=== PATIENT | female | born 1980 ===

== ENCOUNTER 2017-12-08 17:38 | Emergency (ER) | payer MEDICAID ==
[2017-12-08 17:38] VITALS: BMI 23.0
[2017-12-08 18:12] VITALS: RESP 18; O2SAT 100
--- NOTE | 2017-12-08 18:19 | ED PDOC ---
HPI: Back Time Seen by Provider: 12/08/17 18:18 Chief Complaint (Nursing): Back Pain Chief Complaint (Provider): low back pain History Per: Patient Additional Complaint(s): 37-year-old female presents to emergency department with lower back pain and flank pain that started 5 days ago. Patient denies any dysuria or hematuria. She denies any fever or chills. Tylenol has helped the pain somewhat. She rates current pain as 7/10. No tylenol taken today for pain. PMD: none Past Medical History Reviewed: Historical Data, Nursing Documentation, Vital Signs Vital Signs: Last Vital Signs Temp 98.4 F 12/08/17 18:10 Pulse 76 12/08/17 18:10 Resp 18 12/08/17 18:10 BP 110/71 12/08/17 18:10 Pulse Ox 100 12/08/17 18:10 - Medical History PMH: Gastritis - Surgical History Surgical History: Endoscopy, (x 1) Other surgeries: ovarian cyst removal - Family History Family History: States: No Known Family Hx - Living Arrangements Living Arrangements: With Family - Social History Current smoker - smoking cessation education provided: No Alcohol: None Drugs: Denies - Home Medications Home Medications: Ambulatory Orders Medication Instructions Recorded Omeprazole 40 mg PO DAILY 02/10/17 Cyclobenzaprine [Cyclobenzaprine 10 mg PO TID PRN #15 tab 12/08/17 HCl] Ibuprofen [Motrin] 600 mg PO Q6 PRN #15 tab 12/08/17 - Allergies Allergies/Adverse Reactions: Allergies Allergy/AdvReac Type Severity Reaction Status Date / Time No Known Allergies Allergy Verified 02/10/17 10:28 Review of Systems ROS Statement: Except As Marked, All Systems Reviewed And Found Negative Constitutional: Negative for: Fever, Chills Respiratory: Negative for: Cough Gastrointestinal: Negative for: Nausea, Vomiting, Abdominal Pain, Diarrhea Genitourinary Female: Negative for: Dysuria, Frequency, Incontinence, Hematuria , Vaginal Discharge, Vaginal Bleeding Musculoskeletal: Positive for: Back Pain Physical Exam - Reviewed Nursing Documentation Reviewed: Yes Vital Signs Reviewed: Yes - Physical Exam Appears: Positive for: Well, Non-toxic, No Acute Distress Skin: Negative for: Rash Eye Exam: Positive for: Normal appearance Cardiovascular/Chest: Positive for: Regular Rate, Rhythm Respiratory: Positive for: Normal Breath Sounds. Negative for: Wheezing, Respiratory Distress Gastrointestinal/Abdominal: Positive for: Soft. Negative for: Tenderness, Distended, Guarding, Rebound Back: Positive for: L CVA Tenderness, R CVA Tenderness, Vertebral Tenderness ( lumbar) Extremity: Positive for: Normal ROM Neurologic/Psych: Positive for: Alert, Oriented - Laboratory Results Result Diagrams: 12/08/17 18:52 12/08/17 18:52 Urine POC: Negative Urine dip results: Positive for: Blood (small). Negative for: Leukocyte Esterase, Nitrate, Ketones, Glucose, Bilirubin, Protein - ECG O2 Sat by Pulse Oximetry: 100 Pulse Ox Interpretation: Normal - Other Rad CT abd and pelvis without contrast X-Ray: Read By Radiologist X-Ray Interpretation: see below Medical Decision Making Medical Decision Makin37 year old with low back pain and flank pain Plan: CBC CMP Urine dip - blood noted CT abd and pelvis without contrast IVF IV toradol PO tylenol CT: FINDINGS: LIMITATIONS: Mild streak/motion artifact. LOWER THORAX: No infiltrate seen in the lung bases. ABDOMEN: LIVER: No acute abnormality of the liver identified. GALLBLADDER AND BILE DUCTS: No CT evidence of acute cholecystitis. No evidence of significant biliary ductal dilatation. PANCREAS: No CT evidence of acute pancreatitis. SPLEEN: No acute abnormality of the spleen identified. ADRENALS: No acute abnormality of the adrenal glands identified. KIDNEYS AND URETERS: No acute abnormality of the kidneys seen. No renal stones, hydronephrosis, or hydroureter seen. STOMACH AND BOWEL: Retained stool noted throughout the colon, with no evidence of a significant large bowel obstruction or fecal impaction. Otherwise, no significant abnormality of the bowel is identified. No evidence of small bowel obstruction. APPENDIX: Appendix is seen, and is within normal limits in appearance. PELVIS: BLADDER: No acute abnormality of the bladder identified. REPRODUCTIVE: Cystic lesions in the adnexa/ovaries bilaterally. The larger lesion, located on the left, measures up to 5.3 cm, and has a CT density of 19 Hounsfield units, slightly higher than expected for simple fluid. Pelvic ultrasound is recommended for further evaluation, given the size of this lesion, not necessarily on an emergent basis. Bulge in the contour of the uterus anteriorly, most likely secondary to a fibroid. ABDOMEN and PELVIS: INTRAPERITONEAL SPACE: No evidence of free intraperitoneal air or fluid. BONES/JOINTS: No acute fractures or other acute bony abnormality noted. SOFT TISSUES: No acute abnormality of the visualized soft tissues is seen. VASCULATURE: No evidence of abdominal aortic aneurysm. No evidence of periaortic hemorrhage. LYMPH NODES: No evidence of diffuse lymphadenopathy. IMPRESSION: - No evidence of significant acute process on this unenhanced exam. There is no evidence of nephrolithiasis or obstructive uropathy. 5.2 cm left ovarian/adnexal cystic lesion. See recommendations above. Patient is aware of all diagnostic testing results. All questions answered. Patient has a technician trainee that she will follow up with. Prescriptions for Motrin and Flexeril given for back pain. Patient verbalizes understanding of the need for close follow-up. Disposition - Clinical Impression Clinical Impression: Back pain, Ovarian cyst, Fibroid - Patient ED Disposition Is Patient to be Admitted: No Counseled Patient/Family Regarding: Studies Performed, Diagnosis, Need For Followup, Rx Given - [facility]position [facility] Disposition: Routine/Home Disposition Time: 20:41 Condition: STABLE Additional Instructions: Take prescription meds as directed as needed for pain. Follow-up with technician trainee in 1-2 days for further evaluation and obtain rx for ultrasound for further evaluation of ovarian cyst and fibroid. Prescriptions: Cyclobenzaprine [Cyclobenzaprine HCl] 10 mg PO TID PRN #15 tab PRN Reason: Muscle Pain Ibuprofen [Motrin] 600 mg PO Q6 PRN #15 tab PRN Reason: Pain, Moderate (4-7) Instructions: Uterine Fibroids (DC), Ovarian Cyst (DC), Low Back Pain (DC) Forms: [employer] (Citizen Of [place]), [employer] (Kinyarwanda) Print Language: TAJIK Results - Lab Results Lab Results: 12/08/17 12/08/17 18:52 18:52 WBC 6.8 RBC 4.20 Hgb 12.3 Hct 37.3 MCV 88.7 MCH 29.3 MCHC 33.1 RDW 14.1 Plt Count 244 MPV 9.0 Neut % (Auto) 53.8 Lymph % (Auto) 34.1 [place] % (Auto) 8.8 Eos % (Auto) 2.7 Baso % (Auto) 0.6 Neut # (Auto) 3.6 Lymph # (Auto) 2.3 [place] # (Auto) 0.6 Eos # (Auto) 0.2 Baso # (Auto) 0.0 Sodium 143 Potassium 4.2 Chloride 102 Carbon Dioxide 27 Anion Gap 18 BUN 16 Creatinine 0.6 L Est GFR ( Amer) > 60 Est GFR (Non-Af Amer) > 60 Random Glucose 98 Calcium 9.3 Total Bilirubin 0.4 AST 35 ALT 44 Alkaline Phosphatase 54 Total Protein 7.6 Albumin 4.1 Globulin 3.5 Albumin/Globulin Ratio 1.2
[2017-12-08] MEDS ORDERED: Sodium Chloride 0.9% 1,000 ML IV STA (18:39)
[2017-12-08 18:59] LABS: BASO % 0.6 % (0.0-2.0); EOS # 0.2 K/uL (0.0-0.7); EOS % 2.7 % (0.0-4.0); HEMOGLOBIN 12.3 g/dL (12.0-16.0); LYMPH # 2.3 K/uL (1.0-4.3); LYMPH % 34.1 % (20.0-40.0); MEAN CELL VOLUME 88.7 fl (81.0-99.0); MEAN CORPUSCULAR HEMOGLOBIN 29.3 pg (27.0-31.0); MEAN CORPUSCULAR HGB CONC 33.1 g/dL (33.0-37.0); MONO # 0.6 K/uL (0.0-0.8); MONO % 8.8 % (0.0-10.0); NEUT # 3.6 K/uL (1.8-7.0); NEUT % 53.8 % (50.0-75.0); NRBC % 0.1 % (0.0-0.0); RBC 4.2 Mil/uL (3.80-5.20); RED CELL DISTRIBUTION WIDTH 14.1 % (11.5-14.5); WHITE BLOOD COUNT 6.8 K/uL (4.8-10.8)
[2017-12-08 19:25] LABS: ALB/GLOB RATIO 1.2 (1.0-2.1); ALBUMIN 4.1 g/dL (3.5-5.0); ALT/SGPT 44 U/L (9-52); AST/SGOT 35 U/L (14-36); BLOOD UREA NITROGEN 16 mg/dl (7-17); CALCIUM 9.3 mg/dL (8.4-10.2); GFR AFRICAN-AMERICAN > 60; GFR NON-AFRICAN AMERICAN > 60
--- NOTE | 2017-12-08 20:31 | CT ---
EXAM: CT Abdomen and Pelvis Without Intravenous Contrast EXAM DATE/TIME: 12/08/2017 6:39 PM CLINICAL HISTORY: 37 years old, female; Pain; Abdominal pain; Flank; Upper; Additional info: Flank pain, hematuria TECHNIQUE: Axial computed tomography images of the abdomen and pelvis without intravenous contrast. All CT scans at this facility use one or more dose reduction techniques, viz.: automated exposure control; ma/kV adjustment per patient size (including targeted exams where dose is matched to indication; i.e. head); or iterative reconstruction technique. Coronal and sagittal reformatted images were created and reviewed. COMPARISON: No relevant prior studies available. FINDINGS: LIMITATIONS: Mild streak/motion artifact. LOWER THORAX: No infiltrate seen in the lung bases. ABDOMEN: LIVER: No acute abnormality of the liver identified. GALLBLADDER AND BILE DUCTS: No CT evidence of acute cholecystitis. No evidence of significant biliary ductal dilatation. PANCREAS: No CT evidence of acute pancreatitis. SPLEEN: No acute abnormality of the spleen identified. ADRENALS: No acute abnormality of the adrenal glands identified. KIDNEYS AND URETERS: No acute abnormality of the kidneys seen. No renal stones, hydronephrosis, or hydroureter seen. STOMACH AND BOWEL: Retained stool noted throughout the colon, with no evidence of a significant large bowel obstruction or fecal impaction. Otherwise, no significant abnormality of the bowel is identified. No evidence of small bowel obstruction. APPENDIX: Appendix is seen, and is within normal limits in appearance. PELVIS: BLADDER: No acute abnormality of the bladder identified. REPRODUCTIVE: Cystic lesions in the adnexa/ovaries bilaterally. The larger lesion, located on the left, measures up to 5.3 cm, and has a CT density of 19 Hounsfield units, slightly higher than expected for simple fluid. Pelvic ultrasound is recommended for further evaluation, given the size of this lesion, not necessarily on an emergent basis. Bulge in the contour of the uterus anteriorly, most likely secondary to a fibroid. ABDOMEN and PELVIS: INTRAPERITONEAL SPACE: No evidence of free intraperitoneal air or fluid. BONES/JOINTS: No acute fractures or other acute bony abnormality noted. SOFT TISSUES: No acute abnormality of the visualized soft tissues is seen. VASCULATURE: No evidence of abdominal aortic aneurysm. No evidence of periaortic hemorrhage. LYMPH NODES: No evidence of diffuse lymphadenopathy. IMPRESSION: - No evidence of significant acute process on this unenhanced exam. There is no evidence of nephrolithiasis or obstructive uropathy. - 5.2 cm left ovarian/adnexal cystic lesion. See recommendations above. - See above for remaining findings.
[2017-12-08 20:47] VITALS: BP 116/71; PULSE 74; TEMP 98.1
== END 2017-12-08 20:48 | disposition home or self-care (01) ==
LOC: H.ER 17:38
DX: N83.202 Unspecified ovarian cyst, left side (principal); D25.9 Leiomyoma of uterus, unspecified; M54.5 Low back pain
CPT/HCPCS: 74176; 80053; 81025; 85025; 96360; 99283; J1885; J7040

== ENCOUNTER 2018-04-29 20:59 | Emergency (ER) | payer MEDICAID ==
[2018-04-29 20:59] VITALS: BMI 23.0
[2018-04-29 21:23] VITALS: RESP 16; O2SAT 98
[2018-04-29] MEDS ORDERED: Sodium Chloride 0.9% 1,000 ML IV STA (21:48)
--- NOTE | 2018-04-29 21:51 | ED PDOC ---
HPI: Chest Pain Time Seen by Provider: 04/29/18 21:36 Chief Complaint (Nursing): Chest Pain Chief Complaint (Provider): chest tightness History Per: Patient, Family History/Exam Limitations: no limitations Onset/Duration Of Symptoms: Days (1) Current Symptoms Are (Timing): Still Present Quality: Tightness Additional Complaint(s): 38 y/o female presents for evaluation of left-sided chest tightness x 1 day. Patient states pain started after a stressful event at work this morning. Patient also complaining of temporal headache since yesterday. Denies fever, nausea/vomiting, vision changes, shortness of breath, palpitations, changes in bowel movements, urinary symptoms, leg pain/swelling, recent travel. No medications taken for relief thus far. Past Medical History Reviewed: Historical Data, Nursing Documentation, Vital Signs Vital Signs: Last Vital Signs Temp 98.3 F 04/30/18 00:08 Pulse 74 04/30/18 00:08 Resp 16 04/30/18 00:08 BP 106/63 04/30/18 00:08 Pulse Ox 98 04/30/18 00:08 - Medical History PMH: Gastritis Denies: Colonic Polyps, Chronic Kidney Disease - Surgical History Surgical History: Endoscopy, (x 1) - Family History Family History: States: Unknown Family Hx - Home Medications Home Medications: Ambulatory Orders Medication Instructions Recorded Omeprazole 40 mg PO DAILY 02/10/17 Cyclobenzaprine [Cyclobenzaprine 10 mg PO TID PRN #15 tab 12/08/17 HCl] Ibuprofen [Motrin] 600 mg PO Q6 PRN #15 tab 12/08/17 Naproxen [Naprosyn] 500 mg PO Q12 #14 tab 03/30/18 Naproxen [Naprosyn] 500 mg PO Q12 PRN #20 tablet 04/30/18 - Allergies Allergies/Adverse Reactions: Allergies Allergy/AdvReac Type Severity Reaction Status Date / Time No Known Allergies Allergy Verified 04/29/18 21:22 Review of Systems ROS Statement: Except As Marked, All Systems Reviewed And Found Negative Cardiovascular: Positive for: Chest Pain Neurological: Positive for: Headache Physical Exam - Reviewed Nursing Documentation Reviewed: Yes Vital Signs Reviewed: Yes - Physical Exam Appears: Positive for: Well, Non-toxic, No Acute Distress Head Exam: Positive for: ATRAUMATIC, NORMAL INSPECTION, NORMOCEPHALIC Skin: Positive for: Normal Color Eye Exam: Positive for: Normal appearance ENT: Positive for: Normal ENT Inspection Cardiovascular/Chest: Positive for: Regular Rate, Rhythm Respiratory: Positive for: Normal Breath Sounds Gastrointestinal/Abdominal: Positive for: Normal Exam Back: Positive for: Normal Inspection Extremity: Positive for: Normal ROM Neurologic/Psych: Positive for: Alert, Oriented (x3). Negative for: Motor/ Sensory Deficits - Laboratory Results Result Diagrams: 04/29/18 22:24 04/29/18 22:24 - ECG ECG: Positive for: Viewed By Me (reviewed by ED attending) ECG Rhythm: Positive for: Sinus Rhythm O2 Sat by Pulse Oximetry: 98 - Radiology X-Ray: Viewed By Me X-Ray Interpretation: No Acute Disease - Progress ED Course And Treament: cbc cmp troponin ekg cxr iv toradol iv fluids On re-eval, patient states she is feeling better Patient educated on findings, discharged with rx Naproxen Advised follow up PMD 2-3 days Return precautions given Disposition - Clinical Impression Clinical Impression: Chest pain, Headache - Patient ED Disposition Is Patient to be Admitted: No Counseled Patient/Family Regarding: Studies Performed, Diagnosis, Need For Followup, Rx Given - Disposition Disposition: Routine/Home Disposition Time: 01:12 Condition: IMPROVED Prescriptions: Naproxen [Naprosyn] 500 mg PO Q12 PRN #20 tablet PRN Reason: Pain, Moderate (4-7) Instructions: Chest Pain, Headache, Adult Print Language: NAMIBIAN
[2018-04-29 22:49] LABS: BASO % 0.3 % (0.0-2.0); EOS # 0.2 K/uL (0.0-0.7); EOS % 2.7 % (0.0-4.0); HEMOGLOBIN 12.6 g/dL (12.0-16.0); LYMPH # 2.2 K/uL (1.0-4.3); LYMPH % 31.8 % (20.0-40.0); MEAN CELL VOLUME 88.2 fl (81.0-99.0); MEAN CORPUSCULAR HEMOGLOBIN 30.3 pg (27.0-31.0); MEAN CORPUSCULAR HGB CONC 34.4 g/dL (33.0-37.0); MEAN PLATELET VOLUME 9.3 fl (7.2-11.7); MONO # 0.4 K/uL (0.0-0.8); MONO % 6.2 % (0.0-10.0); NEUT # 4.1 K/uL (1.8-7.0); RBC 4.16 Mil/uL (3.80-5.20); RED CELL DISTRIBUTION WIDTH 13.5 % (11.5-14.5)
[2018-04-29 23:24] LABS: ALB/GLOB RATIO 1.2 (1.0-2.1); ALBUMIN 4.1 g/dL (3.5-5.0); ALT/SGPT 38 U/L (9-52); AST/SGOT 32 U/L (14-36); BLOOD UREA NITROGEN 16 mg/dl (7-17); CALCIUM 9.3 mg/dL (8.4-10.2); GFR NON-AFRICAN AMERICAN > 60
[2018-04-30 00:09] VITALS: BP 106/63; PULSE 74; TEMP 98.3
--- NOTE | 2018-04-30 10:08 | RAD ---
Date of service: 04/30/2018 HISTORY: chest pain COMPARISON: Chest radiographs 12/14/2016. TECHNIQUE: Chest PA and lateral FINDINGS: LUNGS: No active pulmonary disease. PLEURA: No significant pleural effusion identified. No pneumothorax apparent. CARDIOVASCULAR: Normal. OSSEOUS STRUCTURES: No significant abnormalities. VISUALIZED UPPER ABDOMEN: Normal. OTHER FINDINGS: None. IMPRESSION: No interval acute cardiopulmonary disease appreciated.
== END 2018-04-30 01:21 | disposition home or self-care (01) ==
LOC: H.ER 20:59
DX: R07.89 Other chest pain (principal); R51 Headache
CPT/HCPCS: 71046; 80053; 81025; 84484; 85025; 96360; 99284; J1885; J7030

== ENCOUNTER 2018-06-29 08:44 | Emergency (ER) | payer MEDICAID ==
[2018-06-29 08:54] VITALS: BMI 22.6
[2018-06-29 08:55] VITALS: RESP 17
[2018-06-29] MEDS ORDERED: Sodium Chloride 0.9% 1,000 ML IV STA (09:41)
[2018-06-29 10:06] LABS: BASO % 0.4 % (0.0-2.0); EOS # 0.1 K/uL (0.0-0.7); EOS % 2.5 % (0.0-4.0); HEMOGLOBIN 11.9 g/dL (12.0-16.0); LYMPH # 1.1 K/uL (1.0-4.3); LYMPH % 23.1 % (20.0-40.0); MEAN CELL VOLUME 87.4 fl (81.0-99.0); MEAN CORPUSCULAR HGB CONC 34.4 g/dL (33.0-37.0); MEAN PLATELET VOLUME 8.8 fl (7.2-11.7); MONO # 0.3 K/uL (0.0-0.8); MONO % 6.4 % (0.0-10.0); NEUT # 3.3 K/uL (1.8-7.0); NEUT % 67.6 % (50.0-75.0); NRBC % 0.1 % (0.0-0.0); RBC 3.96 Mil/uL (3.80-5.20); RED CELL DISTRIBUTION WIDTH 13.6 % (11.5-14.5); WHITE BLOOD COUNT 4.9 K/uL (4.8-10.8)
[2018-06-29 10:20] LABS: ALBUMIN 3.4 g/dL (3.5-5.0); ALT/SGPT 32 U/L (9-52); AST/SGOT 23 U/L (14-36); BLOOD UREA NITROGEN 8 mg/dl (7-17); CALCIUM 8.5 mg/dL (8.4-10.2); GFR NON-AFRICAN AMERICAN > 60; LIPASE 63 U/L (23-300)
--- NOTE | 2018-06-29 10:32 | ED PDOC ---
HPI: Abdomen Time Seen by Provider: 06/29/18 09:24 Chief Complaint (Nursing): Abdominal Pain Chief Complaint (Provider): Abdominal Pain History Per: Patient, [employer] ( [employer] Yoandy #[id number] ) History/Exam Limitations: no limitations Onset/Duration Of Symptoms: Days (x3) Current Symptoms Are (Timing): Still Present Additional Complaint(s): 38 year old female, with a past medical history of gastritis and previous treatment for H. pylori, presenting for evaluation of worsening epigastric pain since x3 days. Patient states she feels like she did before her H. pylori treatment. Patient reports last endoscopy was 1.5 years ago and at that time she was negative for H. pylori. Patient also reports taking 4 doses of Omezaprole since Friday without relief of symptoms. Patient states she is tolerating PO, but due to nausea she has not had any food since Friday. PMD: Dr. Martin Past Medical History Reviewed: Historical Data, Nursing Documentation, Vital Signs Vital Signs: Last Vital Signs Temp 98.3 F 06/29/18 12:16 Pulse 80 06/29/18 12:16 Resp 17 06/29/18 12:16 BP 103/64 06/29/18 12:16 Pulse Ox 99 06/29/18 12:16 - Medical History PMH: Gastritis Denies: Colonic Polyps, Chronic Kidney Disease Other PMH: H. pylori - Surgical History Surgical History: Endoscopy, (x 1) - Family History Family History: States: Unknown Family Hx - Home Medications Home Medications: Ambulatory Orders Medication Instructions Recorded RX: Omeprazole 40 mg PO DAILY 02/10/17 Cyclobenzaprine [Cyclobenzaprine 10 mg PO TID PRN #15 tab 12/08/17 HCl] Ibuprofen [Motrin] 600 mg PO Q6 PRN #15 tab 12/08/17 Naproxen [Naprosyn] 500 mg PO Q12 #14 tab 03/30/18 RX: Naproxen [Naprosyn] 500 mg PO Q12 PRN #20 tablet 04/30/18 Famotidine [Pepcid AC] 10 mg PO DAILY #30 tablet 06/29/18 - Allergies Allergies/Adverse Reactions: Allergies Allergy/AdvReac Type Severity Reaction Status Date / Time No Known Allergies Allergy Verified 04/29/18 21:22 Review of Systems ROS Statement: Except As Marked, All Systems Reviewed And Found Negative Gastrointestinal: Positive for: Nausea, Abdominal Pain Physical Exam - Reviewed Nursing Documentation Reviewed: Yes Vital Signs Reviewed: Yes - Physical Exam Appears: Positive for: Non-toxic, No Acute Distress Head Exam: Positive for: ATRAUMATIC, NORMAL INSPECTION, NORMOCEPHALIC Skin: Positive for: Normal Color, Warm, Dry. Negative for: Rash Eye Exam: Positive for: EOMI, Normal appearance, PERRL Neck: Positive for: Normal, Painless ROM, Supple Cardiovascular/Chest: Positive for: Regular Rate, Rhythm. Negative for: Murmur Respiratory: Positive for: Normal Breath Sounds. Negative for: Respiratory Distress Gastrointestinal/Abdominal: Positive for: Normal Exam, Soft. Negative for: Tenderness ((-) flank pain) Back: Positive for: Normal Inspection. Negative for: L CVA Tenderness, R CVA Tenderness, Vertebral Tenderness Extremity: Positive for: Normal ROM. Negative for: Tenderness, Deformity Neurologic/Psych: Positive for: Alert, Oriented. Negative for: Motor/Sensory Deficits - Laboratory Results Result Diagrams: 06/29/18 09:57 06/29/18 09:57 - ECG O2 Sat by Pulse Oximetry: 98 (RA) Pulse Ox Interpretation: Normal Medical Decision Making Medical Decision Makin Plan: Exacerbation of gastritis. Will give GI cocktail and IV fluids. Labs sent to rule out other GI pathology. Will reassess patient. 1201: Upon re-evaluation patient is tolerating PO and reports pain is improved. Patient already in touch with PMD and will follow up tomorrow. Patient advised to follow up with GI for possible endoscopy. Patient to be discharged home with prescription for Pepcid. Vitals WNL. Return parameters discussed. Scribe Attestation: Documented by Marciano Pat, acting as a scribe for Jessenia Madrigal MD. Provider Scribe Attestation: All medical record entries made by the Scribe were at my direction and personally dictated by me. I have reviewed the chart and agree that the record accurately reflects my personal performance of the history, physical exam, medical decision making, and the department course for this patient. I have also personally directed, reviewed, and agree with the discharge instructions and disposition. Disposition - Clinical Impression Clinical Impression: Gastritis - Disposition Disposition Time: 12:01 Condition: IMPROVED Additional Instructions: Follow up with your primary doctor and your mail officer for further control of gastritis. Take medications as prescribed and return to the emergency department if pain worsens or if new symptoms develop. Prescriptions: Famotidine [Pepcid AC] 10 mg PO DAILY #30 tablet Instructions: Gastritis (DC) Forms: [employer] (Belizean), [employer] (Mauritanian) Print Language: EQUATORIAL GUINEAN
[2018-06-29 12:17] VITALS: BP 103/64; PULSE 80; TEMP 98.3
[2018-06-30 19:30] VITALS: O2SAT 98
== END 2018-06-29 12:13 | disposition home or self-care (01) ==
LOC: H.ER 08:44
DX: R10.9 Unspecified abdominal pain (principal)
CPT/HCPCS: 80053; 81025; 83690; 85025; 96361; 96374; 96375; 99283; J2405; J7030

== ENCOUNTER 2018-12-13 01:16 | Emergency (ER) | payer MEDICAID ==
[2018-12-13 01:17] VITALS: BMI 22.6
[2018-12-13] MEDS ORDERED: Sodium Chloride 0.9% 1,000 ML IV STA (01:58)
--- NOTE | 2018-12-13 03:31 | ED PDOC ---
HPI: Abdomen Time Seen by Provider: 12/13/18 01:37 Chief Complaint (Nursing): Abdominal Pain History Per: Patient, [employer] Hat [employer] (Voyce: [id number], Korean) History/Exam Limitations: no limitations Onset/Duration Of Symptoms: Days Outside of [place] travel?: No Context: Food Location Of Pain/Discomfort: Epigastric Additional Complaint(s): 38 year old F with history of gastritis presenting with abdominal pain. States that on Friday she ate food from outside and since has had abdominal discomfort that worsened yesterday (Friday) associated with burning epigastric pain and "bad taste in mouth". She states she has had a few episodes of nonbloody diarrhea and nausea but no vomiting. Denies urinary symptoms. No fevers, chills. States that she feels dehydrated and has a mild throbbing headache. Was prescribed antibiotics by Dr. Wynn which she started taking yesterday, states they were prescribed for a "bacterial stomach infection". GI: Dr. Wynn Past Medical History Reviewed: Historical Data, Nursing Documentation, Vital Signs Vital Signs: Last Vital Signs Temp 99.3 F 12/13/18 01:33 Pulse 111 H 12/13/18 01:33 Resp 16 12/13/18 01:33 BP 116/81 12/13/18 01:33 Pulse Ox 98 12/13/18 01:33 - Medical History PMH: Gastritis Denies: Colonic Polyps, Chronic Kidney Disease - Surgical History Surgical History: Endoscopy, (x 1) - Family History Family History: States: Unknown Family Hx - Home Medications Home Medications: Ambulatory Orders Medication Instructions Recorded Omeprazole 40 mg PO DAILY 02/10/17 Cyclobenzaprine [Cyclobenzaprine 10 mg PO TID PRN #15 tab 12/08/17 HCl] Ibuprofen [Motrin] 600 mg PO Q6 PRN #15 tab 12/08/17 Naproxen [Naprosyn] 500 mg PO Q12 #14 tab 03/30/18 Naproxen [Naprosyn] 500 mg PO Q12 PRN #20 tablet 04/30/18 Famotidine [Pepcid AC] 10 mg PO DAILY #30 tablet 06/29/18 Dicyclomine [Bentyl] 20 mg PO BID #30 tab 12/13/18 Famotidine [Pepcid] 20 mg PO BID #20 tab 12/13/18 - Allergies Allergies/Adverse Reactions: Allergies Allergy/AdvReac Type Severity Reaction Status Date / Time No Known Allergies Allergy Verified 04/29/18 21:22 Review of Systems ROS Statement: Except As Marked, All Systems Reviewed And Found Negative Gastrointestinal: Positive for: Nausea, Abdominal Pain, Diarrhea. Negative for: Vomiting Physical Exam - Reviewed Nursing Documentation Reviewed: Yes Vital Signs Reviewed: Yes - Physical Exam Appears: Positive for: Well, Non-toxic, No Acute Distress Head Exam: Positive for: ATRAUMATIC, NORMAL INSPECTION, NORMOCEPHALIC Skin: Positive for: Normal Color, Warm, DRY Eye Exam: Positive for: EOMI, Normal appearance, PERRL ENT: Positive for: Normal ENT Inspection Neck: Positive for: Normal, Painless ROM Cardiovascular/Chest: Positive for: Regular Rate, Rhythm Respiratory: Positive for: CNT, Normal Breath Sounds Gastrointestinal/Abdominal: Positive for: Soft, Tenderness (Tenderness to deep palpation in epigastric region, negative Payton's/McBurney's tenderness). Negative for: Distended, Guarding, Rebound Back: Positive for: Normal Inspection Extremity: Positive for: Normal ROM Neurological/Psych: Positive for: Awake, Alert, Normal Tone - Laboratory Results Result Diagrams: 12/13/18 03:33 12/13/18 03:33 - ECG O2 Sat by Pulse Oximetry: 98 Pulse Ox Interpretation: Normal Medical Decision Making Medical Decision Making: A/P: Patient with history of gastritis presenting with epigastric pain --Symptoms are consistent with gastritis flareup --Will obtain bloodwork to evaluate for other GI pathology --Currently well appearing, tachycardic 7AM --Patient is feeling better, states the pain has subsided --Will recommend jose pepcid --Advised patient to followup with her GI, Dr. Wynn tomorrow for checkup --Advised to return to the E.D. if her symptoms return or worsen or new symptoms develop Disposition - Clinical Impression Clinical Impression: Gastritis - Patient ED Disposition Is Patient to be Admitted: No - Disposition Referrals: Cristi Wynn MD [Staff Provider] - Disposition: Routine/Home Disposition Time: 07:03 Condition: IMPROVED Additional Instructions: Si daniela sntomas persisten o empeoran, o si aparecen nuevos sntomas, regrese a la gene de emergencias. Prescriptions: Dicyclomine [Bentyl] 20 mg PO BID #30 tab Famotidine [Pepcid] 20 mg PO BID #20 tab Instructions: Gastritis (DC) Forms: [employer] (Finnish)
[2018-12-13 03:41] LABS: BASO % 0.4 % (0.0-2.0); EOS % 0.1 % (0.0-4.0); HEMOGLOBIN 12.9 g/dL (12.0-16.0); LYMPH # 0.4 K/uL (1.0-4.3); LYMPH % 5.6 % (20.0-40.0); MEAN CELL VOLUME 87.3 fl (81.0-99.0); MEAN CORPUSCULAR HEMOGLOBIN 29.9 pg (27.0-31.0); MEAN CORPUSCULAR HGB CONC 34.3 g/dL (33.0-37.0); MEAN PLATELET VOLUME 9.1 fl (7.2-11.7); MONO # 0.2 K/uL (0.0-0.8); MONO % 2.5 % (0.0-10.0); NEUT # 6.7 K/uL (1.8-7.0); NEUT % 91.4 % (50.0-75.0); PLATELET COUNT 227 K/uL (130-400); RED CELL DISTRIBUTION WIDTH 13.6 % (11.5-14.5); WHITE BLOOD COUNT 7.3 K/uL (4.8-10.8)
[2018-12-13 03:51] LABS: ALB/GLOB RATIO 1.2 (1.0-2.1); ALBUMIN 3.9 g/dL (3.5-5.0); ALT/SGPT 57 U/L (9-52); AST/SGOT 34 U/L (14-36); BLOOD UREA NITROGEN 12 mg/dl (7-17); CALCIUM 8.9 mg/dL (8.4-10.2); GFR NON-AFRICAN AMERICAN > 60; LIPASE 31 U/L (23-300)
[2018-12-13 05:05] LABS: BASOPHIL 1 % (0-2); LYMPHOCYTE 6 % (20-50); MONOCYTE 3 % (0-10); NEUTROPHIL 90 % (42-75); PLATELET ESTIMATE NORMAL (NORMAL); TOTAL CELLS COUNTED 100
[2018-12-13 05:06] LABS: LARGE PLATELETS PRESENT; TOXIC GRANULATION PRESENT
[2018-12-13 07:19] VITALS: BP 116/70; PULSE 83; RESP 18; TEMP 98.9; O2SAT 99
== END 2018-12-13 07:10 | disposition home or self-care (01) ==
LOC: H.ER 01:16
DX: K29.70 Gastritis, unspecified, without bleeding (principal)
CPT/HCPCS: 80053; 81025; 83690; 85025; 96361; 96374; 96375; 99284; C9113; J2765; J7030